=== PATIENT | male | born 1990 | race Caucasian/White ===

== ENCOUNTER 2023-03-09 01:42 | Emergency (ER) | payer MEDICAID ==
[~2023-03-09] VITALS: Ht 175.3 cm; Wt 100.0 kg
[2023-03-09] MEDS ORDERED: LORAZEPAM 2MG/ML CPJ IM ONE (02:00)
[2023-03-09] MEDS ORDERED: HALOPERIDOL LACTATE 5MG/ML VIAL IM ONE (02:00)
[2023-03-09] MEDS ORDERED: DIPHENHYDRAMINE 50MG/ML VIAL IM ONE (02:00)
[2023-03-09 05:23] LABS: BASOPHILS % 0.2 % (0.0-2.0); HEMATOCRIT. 41.4 % (42.0-52.0); HEMOGLOBIN. 14.4 g/dL (14.0-18.0); LYMPHOCYTES % 7.5 % (20.0-50.0); MEAN CORPUSCULAR HEMOGLOBIN 30.4 pg (28.0-32.0); MEAN CORPUSCULAR VOLUME 87.5 fL (80.0-94.0); MEAN PLATELET VOLUME 8.4 fl (7.4-10.4); MONOCYTES % 8.2 % (2.0-8.0); NEUTROPHILS % 84.1 % (40.0-76.0); PLATELET 336 x1000/uL (130-400); RED BLOOD CELL COUNT 4.74 mill/uL (4.7-6.1)
[2023-03-09 05:32] LABS: CHLORIDE 104 mEq/L (98-107)
[2023-03-09 05:40] LABS: ETHANOL BLOOD < 10 mg/dL
[2023-03-09 06:14] LABS: CLARITY URINE CLOUDY (CLEAR); COLOR URINE YELLOW (YELLOW); KETONES URINE 1+ (NEGATIVE); LEUKOCYTE ESTERASE URINE NEGATIVE (NEGATIVE); NITRITE URINE NEGATIVE (NEGATIVE); OCCULT BLOOD URINE NEGATIVE (NEGATIVE); PH URINE 5.5 (4.5-8.0); PROTEIN URINE 1+ (NEGATIVE); SPECIFIC GRAVITY URINE 1.029 (1.005-1.030); UROBILINOGEN URINE 0.2 E.U./dL (0.2-1.0)
[2023-03-09 06:35] LABS: *AMPHETAMINES SCREEN URINE PRESUMTIVE POSITIVE (NEGATIVE); *BARBITURATES SCREEN URINE NEGATIVE (NEGATIVE); *BENZODIAZEPINES SCREEN URINE NEGATIVE (NEGATIVE); *COCAINE SCREEN URINE NEGATIVE (NEGATIVE); CANNABINOID URINE SCREEN PRESUMTIVE POSITIVE (NEGATIVE); METHADONE URINE SCREEN NEGATIVE (NEGATIVE); OPIATES URINE SCREEN NEGATIVE (NEGATIVE); PHENCYCLIDINE URINE SCREEN NEGATIVE (NEGATIVE)
[2023-03-09 07:00] VITALS: BP 104/53
== END 2023-03-09 15:51 | disposition home or self-care (01) ==
LOC: EDBD 01:42 → ER 01:42
DX: R41.82 Altered mental status, unspecified (principal)
CPT/HCPCS: 36415; 70450; 80053; 80305; 80307; 80320; 80329; 81003; 85025; 96372; 99285; J1200; J1630; J2060; Z7610; G0480

== ENCOUNTER 2023-03-15 12:28 | Emergency (ER) | payer MEDICAID ==
[~2023-03-15] VITALS: Ht 175.3 cm; Wt 86.0 kg
[2023-03-15 12:40] VITALS: BP 165/47
[2023-03-15] MEDS ORDERED: LIDOCAINE HCL 1% 20ML VIAL (Pyxis) INJ INFIL ONE (13:00)
[2023-03-15] MEDS ORDERED: TETANUS, DIPHTHERIA, PERTUSSIS VAC/PF 0.5ML (>10YR OLD) IM ONE (13:00)
[2023-03-15] MEDS ORDERED: ACET-2708 MT (14:01)
[2023-03-15] MEDS ORDERED: BACITRACIN 15GM TUBE TOP ONE (14:15)
== END 2023-03-15 14:52 | disposition home or self-care (01) ==
LOC: ER 12:28
DX: S01.01XA Laceration without foreign body of scalp, initial encounter (principal); Z98.890 Other specified postprocedural states; Z00.00 Encounter for general adult medical examination without abnormal findings; W18.30XA Fall on same level, unspecified, initial encounter; Y93.89 Activity, other specified; Y92.89 Other specified places as the place of occurrence of the external cause; Y99.8 Other external cause status
CPT/HCPCS: 12004; 99283; J3490; Z7610

== ENCOUNTER 2023-03-25 13:52 | Emergency (ER) | payer MEDICAID ==
[~2023-03-25] VITALS: Ht 175.3 cm; Wt 68.0 kg
[~2023-03-25 13:52] MED LIST: ACET-2708 MT
[2023-03-25 14:02] VITALS: BP 128/70
== END 2023-03-25 16:51 | disposition home or self-care (01) ==
LOC: ER 13:52
DX: S01.91XD Laceration without foreign body of unspecified part of head, subsequent encounter (principal); X58.XXXD Exposure to other specified factors, subsequent encounter
CPT/HCPCS: 99283

== ENCOUNTER 2023-04-30 09:40 | Emergency (ER) | payer MEDICAID ==
[~2023-04-30] VITALS: Ht 175.3 cm; Wt 84.0 kg
[2023-04-30 09:42] VITALS: O2SAT 98
[2023-04-30] MEDS ORDERED: LIDOCAINE HCL/EPINEPHRINE 1%-EPI 1:100,000 20 ML VIAL INFIL ONE (10:15)
[2023-04-30] MEDS ORDERED: ACETAMINOPHEN 325MG TABLET PO ONE (10:15)
[2023-04-30] MEDS ORDERED: BACITRACIN ZINC OINT UDPKT TOP ONE (10:15)
[2023-04-30] MEDS ORDERED: TETANUS, DIPHTHERIA, PERTUSSIS VAC/PF 0.5ML (>10YR OLD) IM ONE ×2 (10:15→12:00)
[2023-04-30] MEDS ORDERED: NAPR-681 PO (12:49)
[2023-04-30] MEDS ORDERED: CEPH500C2 MT (12:49)
[2023-04-30] MEDS ORDERED: CEPHALEXIN 250MG CAPSULE PO SCH (13:00)
[2023-04-30 13:25] VITALS: BP 121/64; PULSE 120; RESP 18; TEMP 98.1
== END 2023-04-30 13:25 | disposition home or self-care (01) ==
LOC: ER 09:40
DX: S01.81XA Laceration without foreign body of other part of head, initial encounter (principal); W18.39XA Other fall on same level, initial encounter; Y93.89 Activity, other specified; Y92.89 Other specified places as the place of occurrence of the external cause; Y99.8 Other external cause status
CPT/HCPCS: 70450; 90715; 90471; 99285; J3490; Z7610